=== PATIENT | male | born 1980 | race Caucasian/White ===

== ENCOUNTER 2019-07-11 11:00 | Outpatient (RCR) | payer OTHER, SELFPAY ==
--- NOTE | 2019-06-12 12:27 | HP.PTEVAL ---
Patient's Visit Information MORENITA LENTZ II is a 39 year old M referred to Physical Therapy by David Avalos MD with a diagnosis of LEFT KNEE AND RIGHT ANKLE PAIN.. Date of Evaluation: 06/12/19 Physical Therapist: Mary Nelson PT, Cert MDT - Visit Plan Frequency: 2x /Week Duration: 4 Weeks Plan: MALIKA LE ROM, STRETCHING AND STRENGTHENING. HEP INSTRUCTION. TRANSFER OF CARE TO KAILASH RALPH PT. 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 A LOT OF BENDING, TWISTING, REACHING. NOT OFF WORK. Disability: NO. Present symptoms: LEFT KNEE MEDIAL PAIN. RIGHT MEDIDAL ANKLE PAIN. NO NUMBNESS OR TINGLING IN EITHER LE. Present since: LEFT KNEE - ABOUT YEAR AGO. RIGHT ANKLE - ABOUT 5-6 MONTHS AGO. Pain Scale: LEFT KNEE - WORST 9/10, LEAST 2/10. RIGHT ANKLE - WORST 6/10, LEAST 2/10. Currently: LEFT KNEE - 4/10 STIFF, RIGHT ANKLE - 4/10. Commenced as a result of: LEFT KNEE - FALL. RIGHT ANKLE - FELT A POP AND BURN WHILE WALKING. Symptoms at onset: LEFT KNEE PAIN AND RIGHT ANKLE PAIN. Worse: SOMETIMES RUNNING AND LATERAL MVMTS CAUSE LEFT KNEE PAIN, BUCKLING AND SWELLING. LEFT KNEE SX'S ARE MORE LIMITING SOMETIMES THAN OTHERS. RIGHT ANKLE - FLEXING IT, WAKLING UP AND DOWN STEPS, RUNNING. Better: LEFT KNEE - GETTING OFF OF IT AND NOT KEEPING IT IN ONE POSITION FOR TOO LONG. RIGHT ANKLE - BEING CAREFUL WHAT HE DOES. Disturbed sleep: YES - ESPECIALLY LEFT KNEE. Previous history/Previous treatment: ONE RECENT PHYSICIAN VISIT AND THAT IS ALL IN THE LAST YEAR OR SO. NO PRIOR RIGHT ANKLE OR LEFT KNEE INJURIES OR TREATMENTS IN THE PAST. Gait: PATIENT REPORTS THAT IF HIS LEFT KNEE OR RIGHT KNEE GET FLARED UP SOMETIMES HE CAN BARELY WALK. Accidents: NO. Unexplained weight loss: NO. Imaging: NONE. PMH: INTERMITTENT LBP - HAS SEEN A CHIROPRACTOR FOR ABOUT 18 MONTHS ABOUT 5 YEARS AGO. PATIENT DENIES ANY RECENT LBP. Recent major surgery: NO - Objective THIS PATIENT AMBULATES INDEP'LY INTO PT WITH NO GROSS DEVIATIONS NOTED. Motor deficit: MALIKA LE STRENGTH IS 5/5 WITH MMT'ING EXCEPT RIGHT ANKLE PLANTAR FLEXORS GRADED 4/5 AND MILD MEDIAL RIGHT ANKLE PAIN WITH TESTING. Sensory deficit: NO. ROM deficit: MALIKA LE'S WFL EXCEPT LEFT KNEE FLEX TO 130 DEG WITH END RANGE PAIN MEDIALLY. RIGHT KNEE IS 140 DEG FLEX AND PAINFREE. GOOD MALIKA ANKLE ROM ALL PLANES AND NO C/O PAIN WITH TESTING. Reflexes: 2/3 MALIKA LE'S. Dural Signs: NEGATIVE MALIKA LE'S. Lumbar mvmt loss: flex - NIL. ext - MIN. R SG - NIL. L SG - NIL. Core strength: GOOD. Palpation: MILD LEFT MEDIDAL KNEE AND RIGHT MEDIAL ANKLE PAIN. NO SWELLING NOTED IN KNEE OR ANKLE TODAY. PATIENT REPORTS IT COMES AND GOES. - Goals Goal 1:: DECREASE C/O LEFT KNEE AND RIGHT ANKLE PAIN Goal Time Frame: 4-6 Weeks Goal 2:: INCREASE LEFT KNEE FUNCTIONAL ROM Goal Time Frame: 4-6 Weeks Goal 3:: INCREASE LEFT KNEE AND RIGHT ANKLE FUNCTIONAL STRENGTH Goal Time Frame: 4-6 Weeks Goal 4:: INDEP WITH HEP FOR CONTINUED IMPROVEMENT ONCE FORMAL PHYSICAL THERAPY CONCLUDES. Goal Time Frame: 4-6 Weeks - Rehabilitation Potential Rehabilitation Potential: Fair - Anticipated Interventions Patient/Client Instruction: Educate patient on: Condition, Plan of Care, Risk Factors, Benefits of Fitness Program For the Purpose of:: To improve self management Therapeutic Exercise to Include: Strength training, Flexibilty training, Active ROM For the Purpose of:: To decrease pain, To increase ROM, To improve muscle performance and motor function, To increase tolerance to activity/condition/position, To improve ability of physical actions for home/community/work/leisure, To improve gait and locomotor functions Thank you for the opportunity to evaluate your patient. For Medicare and Medicare HMO plans, please review the plan of care and approve it. It will need to be FAXED BACK to us at [phone] for Medicare purposes. For Medicare only, by signing this I certify the plan of care. Please let me know if there are questions or concerns regarding this plan of care. Physician Signature: Date:
--- NOTE | 2019-07-11 11:55 | HP.PTDCSUM ---
HP - PT D/C Summary It has been my pleasure to treat MORENITA LENTZ II under orders from David Avalos MD, for the diagnosis of LEFT KNEE AND RIGHT ANKLE PAIN. for a total of 8 visit(s). Discharge Date: Please see the following information for a summary of their discharge status. - Subjective Subjective: Pt notes he still gets twinges in L knee which are very painful, but it doesnt last as long. Pt feels stronger and has better balance, but the pain is the same. - Pain L knee Pain Intensity (Out of 10): 5 - Overall Improvement % Improvement: 25 - Objective Objective/Function: L knee MMT 5/5 throughout. R ankle DF/PF 5/5. Inversion and eversion 4/5 and painful. L knee ROM: 0-140. R ankle ROM: DF= 5, PF= 55. Pt is I with HEP. Pt has improved in every aspect but pain intensity. - Goals Goal 1:: DECREASE C/O LEFT KNEE AND RIGHT ANKLE PAIN Goal Progress: Not Progressing Goal 2:: INCREASE LEFT KNEE FUNCTIONAL ROM Goal 3:: INCREASE LEFT KNEE AND RIGHT ANKLE FUNCTIONAL STRENGTH Goal 4:: INDEP WITH HEP FOR CONTINUED IMPROVEMENT ONCE FORMAL PHYSICAL THERAPY CONCLUDES. Goal Progress: Goal Met - Plan Plan: Discharge - D/C Information If there are questions or concerns regarding this patient's physical therapy, please feel free to call me at [phone]. Thank you for the referral of this patient. Sincerely, Tristin Golden, PT, ATC
== END 2019-07-11 19:00 | disposition home or self-care (01) ==
LOC: PT 11:00
PROVIDERS: Family Provider Family Medicine; PCP Family Medicine; Referring Provider Family Medicine; Visit Provider Family Medicine
DX: M25.571 Pain in right ankle and joints of right foot (principal); S83.8X2D Sprain of other specified parts of left knee, subsequent encounter
CPT/HCPCS: 97035; 97110; 97162; 97530

== ENCOUNTER → 2019-07-19 09:19 | Outpatient (CLI) | payer OTHER, SELFPAY ==
--- NOTE | 2019-07-19 09:22 | RAD_ITS ---
STUDY: X-RAY - LEFT KNEE REASON FOR EXAM: Male, 39 years old. TECHNIQUE: 4 view(s) of the knee. COMPARISON: None. FINDINGS: Normal visualized distal femur. Normal visualized proximal tibia and fibula. Normal proximal tibiofibular articulation. Normal medial femorotibial compartment. Normal lateral femorotibial compartment. Normal patellofemoral articulation. The soft tissue structures are unremarkable. No joint effusion. RAD/Knee 4 or More Views IMPRESSION: Normal x-ray examination of the knee. Electronically Signed: David Hanna, at 11:10 EST Tel , Service support ,
== END ==
PROVIDERS: Family Provider Family Medicine; PCP Family Medicine; Referring Provider Family Medicine; Visit Provider Family Medicine
DX: S83.8X2S Sprain of other specified parts of left knee, sequela (principal); X58.XXXA Exposure to other specified factors, initial encounter; Y93.9 Activity, unspecified; Y92.9 Unspecified place or not applicable; Y99.9 Unspecified external cause status
CPT/HCPCS: 73564

== ENCOUNTER → 2019-08-07 07:07 | Outpatient (CLI) | payer OTHER, SELFPAY ==
--- NOTE | 2019-08-07 07:23 | MRI_ITS ---
STUDY: MRI LEFT KNEE REASON FOR EXAM: Male, 39 years old. Pain. Twisting injury. TECHNIQUE: Standardized fat and water weighted pulse sequences were obtained in all 3 orthogonal planes. COMPARISON: X-ray July 19, 2019. FINDINGS: Medial meniscus tear at the junction of the posterior horn and body, series 4 images and . Normal hyaline cartilage of the medial femorotibial compartment. There is reactive marrow edema of the medial femoral condyle and tibial plateau. Normal medial collateral ligamentous complex (MCL). Normal distal semimembranosus, gracilis and semitendinosus tendons. Normal lateral meniscus. Normal hyaline cartilage of the lateral femorotibial compartment. Normal lateral femoral condyle and tibial plateau. Normal proximal tibiofibular articulation. Normal lateral collateral (fibular) ligament. Normal popliteus tendon. Normal biceps femoris tendon. Normal anterior cruciate ligament (ACL). Normal posterior cruciate ligament (PCL). Normal congruent patellofemoral articulation. Normal hyaline cartilage of the patellofemoral compartment. Normal medial and lateral patellar retinaculum. Normal quadriceps tendon. Normal patellar tendon. Normal Hoffa''s fat pad. There is a small volume joint effusion. The soft tissues are unremarkable. The otherwise visualized osseous structures are unremarkable. MRI/Lower Ext Joint Only (Routine) IMPRESSION: Medial meniscus tear. Bone bruise or stress injury of the medial femoral condyle and medial tibial plateau. Joint effusion. Electronically Signed: Jimmy Shaw MD at 17:31 EST , Service support ,
== END ==
PROVIDERS: Family Provider Family Medicine; PCP Family Medicine; Referring Provider Family Medicine; Visit Provider Family Medicine
DX: S83.8X2S Sprain of other specified parts of left knee, sequela (principal)
CPT/HCPCS: 73721

== ENCOUNTER → 2020-11-30 07:23 | Outpatient (CLI) | payer OTHER, SELFPAY ==
[2020-11-30 10:08] LABS: Absolute Lymphocyte Count 2.24 X10^3/uL (0.83-4.51); Absolute Neutrophil Count 5.7 X10^3/uL (2.0-7.7); Basophil# 0.03 X10^3/uL; Basophil% 0.3 % (0-1); Eosinophil# 0.32 X10^3/uL; Eosinophils% 3.6 % (0-5); Hematocrit 48.9 % (40-54); Hemoglobin 16.3 g/dL (13.0-16.5); Lymphocyte # 2.24 X10^3/ul (4.0); Lymphocyte % 25.1 % (19-41); Mean Corp Hgb Conc 33.3 g/dL (32-36); Mean Corpuscular Hgb 31.2 pg (27.0-32.0); Mean Corpuscular Volume 93.7 fL (80-94); Mean Platelet Vol. 10.5 fl (6.2-12.0); Monocyte# 0.55 X10^3/uL; Monocyte% 6.2 % (0-10); NRBC Flagged by Analyzer 0 % (0-5); Neutrophil # 5.74 X10^3/uL (2.7-7.7); Neutrophil % 64.5 % (47-70); Platelet Count 315 K/mm3 (150-450); RBC Distribution Width CV 11.5 % (11.6-14.6); RBC Distribution Width SD 39.8 fl (35.1-43.9); Red Blood Count 5.22 M/mm3 (4.6-6.2); White Blood Count 8.9 K/mm3 (4.4-11.0)
[2020-11-30 10:48] LABS: AST(SGOT) 13 U/L (15-37); Alanine Aminotransfer ALT/SGPT 30 U/L (16-61); Alkaline Phosphatase 83 U/L (45-117); Anion Gap 4 (5-15); BUN 14 mg/dL (7-18); BUN/Creat Ratio 15.4 RATIO (10-20); Bilirubin, Direct 0.12 mg/dL (0.00-0.30); Chloride 106 mmol/L (98-107); Creatinine, Serum 0.91 mg/dL (0.70-1.30); EST Glomerular Filtration Rate 98 mL/min (>60); Est Glom Filt Rate - Afr Amer 118 mL/min (>60); Glucose 109 mg/dL (74-106); Sodium Level 140 mmol/L (136-145)
[2020-11-30 11:22] LABS: Hepatitis B Surface Antibody Reactive; Hepatitis B Surface Antigen Non-Reactive (Nonreactive); Hepatitis C Antibody Non-Reactive (Nonreactive)
[2020-12-05 03:07] LABS: QNTFERON TB Mitogen Value > 10.00 IU/mL (.); QNTFERON TB Nil Value 0.02 IU/mL (.); QNTFERON TB1+ Ag Value 0 IU/mL (.); QNTFERON TB2+ Ag Value 0 IU/mL (.)
[2020-12-05 19:52] LABS: Hepatitis B Core Ab Total Negative (Negative); QNTIFERON TB Positive Criteria Negative (Negative)
== END ==
PROVIDERS: PCP Family Medicine; Referring Provider Dermatology; Visit Provider Dermatology
DX: L40.0 Psoriasis vulgaris (principal); Z79.899 Other long term (current) drug therapy
CPT/HCPCS: 36415; 80048; 80076; 85025; 86480; 86704; 86706; 86803; 87340

== ENCOUNTER 2021-12-07 07:25 | Outpatient (CLI) | payer OTHER, SELFPAY ==
[2021-12-07 09:56] LABS: Absolute Lymphocyte Count 1.43 X10^3/uL (0.83-4.51); Absolute Neutrophil Count 5.6 X10^3/uL (2.0-7.7); Basophil# 0.02 X10^3/uL; Basophil% 0.3 % (0-1); Eosinophil# 0.24 X10^3/uL; Eosinophils% 3.1 % (0-5); Hematocrit 44.4 % (40-54); Hemoglobin 15.3 g/dL (13.0-16.5); Lymphocyte # 1.43 X10^3/ul (0.83-4.51); Lymphocyte % 18.6 % (19-41); Mean Corp Hgb Conc 34.5 g/dL (32-36); Mean Corpuscular Hgb 31.5 pg (27.0-32.0); Mean Corpuscular Volume 91.5 fL (80-94); Mean Platelet Vol. 11.8 fl (6.2-12.0); Monocyte# 0.39 X10^3/uL; Monocyte% 5.1 % (0-10); NRBC Flagged by Analyzer 0 % (0-5); Neutrophil # 5.58 X10^3/uL (2.7-7.7); Neutrophil % 72.5 % (47-70); Platelet Count 232 K/mm3 (150-450); RBC Distribution Width CV 12.1 % (11.6-14.6); RBC Distribution Width SD 40.6 fl (35.1-43.9); Red Blood Count 4.85 M/mm3 (4.6-6.2); White Blood Count 7.7 K/mm3 (4.4-11.0)
[2021-12-07 10:18] LABS: AST(SGOT) 27 U/L (15-37); Alanine Aminotransfer ALT/SGPT 33 U/L (16-61); Albumin, Serum 3.8 g/dL (3.2-5.0); Alkaline Phosphatase 75 U/L (45-117); Anion Gap 4 (5-15); BUN 11 mg/dL (7-18); BUN/Creat Ratio 11.8 RATIO (10-20); Calcium,Total 8.4 mg/dL (8.5-10.1); Chloride 107 mmol/L (98-107); Creatinine, Serum 0.93 mg/dL (0.70-1.30); EST Glomerular Filtration Rate 95 mL/min (>60); Est Glom Filt Rate - Afr Amer 114 mL/min (>60); Glucose 137 mg/dL (74-106); Potassium 4.5 mmol/L (3.5-5.1); Protein, Total 6.8 g/dL (6.4-8.2); Sodium Level 140 mmol/L (136-145)
[2021-12-09 17:07] LABS: QNTFERON TB Mitogen Value > 10.00 IU/mL (.); QNTFERON TB Nil Value 0.02 IU/mL (.); QNTFERON TB1+ Ag Value 0.02 IU/mL (.); QNTFERON TB2+ Ag Value 0.02 IU/mL (.)
[2021-12-09 18:53] LABS: Hepatitis B Core Ab Total Negative (Negative)
[2021-12-09 18:54] LABS: QNTIFERON TB Positive Criteria Negative (Negative)
== END 2021-12-07 23:59 | disposition home or self-care (01) ==
LOC: MTLAB 07:27
PROVIDERS: PCP Family Medicine; Referring Provider Dermatology; Visit Provider Dermatology
DX: L40.0 Psoriasis vulgaris (principal); Z79.899 Other long term (current) drug therapy
CPT/HCPCS: 36415; 80048; 80076; 85025; 86480; 86704